=== PATIENT | female | born 1990 | race Hispanic/Latino ===

== ENCOUNTER 2016-07-09 11:29 | Observation (INO) | payer BC ==
[2016-07-09 11:49] VITALS: BMI 25.4
[2016-07-09 11:57] VITALS: RESP 18; TEMP 100.1
[2016-07-09] MEDS ORDERED: Sodium Chloride 0.9% 1,000 ML IV STA (11:58)
--- NOTE | 2016-07-09 12:09 | ED PDOC ---
Arrival/HPI - General Chief Complaint: Syncope Time Seen by Provider: 07/09/16 11:51 Historian: Patient - History of Present Illness Narrative History of Present Illness (Text): 07/09/16 11:50 A 26 year old G0:P0 female who denies any past medical history presents to emergency department after a syncopal episode that took place earlier today. Patient reports she got her menses on 06/14/16, which was heavy for 2 days and then resolved. Patient notes this is not usual for her. She states that 3 days later, she started encountering vaginal bleeding again and since then has been experiencing intermittent heavy vaginal bleeding accompanied by worsening lower abd pressure in the pelvic region. 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 Patient went to her willow machine tender for evaluated who suggested that she comes into the emergency department for further evaluations. Patient denies any head trauma, vomiting, fever, headache, or any other complaints at this time. PMD: Dean MEDICAL DOCTOR NUCLEAR MEDICINE: Antonia Time/Duration: 1-3 hours Symptom Onset: Sudden Symptom Course: Intermittent, Other Quality: Pressure (suprapubic pressure) Activities at Onset: Rest Modifying Factors (Text): abnormalities in menstrual cycle Context: Work (teacher, syncope while at work ) Associated Symptoms (Text): Vaginal bleeding, suprapubic pain, dizziness and nausea Past Medical History - Provider Review Nursing Documentation Reviewed: Yes - Infectious Disease Hx of Infectious Diseases: None - Tetanus Immunization Tetanus Immunization: Unknown - Past Medical History Past Medical History: No Previous - Pulmonary Hx Respiratory Disorders: No - Neurological Hx Neurological Disorder: No - Renal Hx Renal Disorder: No - Endocrine/Metabolic Hx Endocrine Disorders: No - Hematological/Oncological Hx Blood Disorders: No - Integumentary Hx Dermatological Disorder: No - Musculoskeletal/Rheumatological Hx Musculoskeletal Disorders: No - Gastrointestinal Hx Gastrointestinal Disorders: No - Genitourinary/Gynecological Hx Genitourinary Disorders: No - Psychiatric Hx Psychophysiologic Disorder: No Hx Depression: No Hx Emotional Abuse: No Hx Physical Abuse: No Hx Substance Use: No - Past Surgical History Past Surgical History: No Previous - Surgical History Other/Comment: sinus surgery 04/2013 - Anesthesia Hx Anesthesia: Yes Hx Anesthesia Reactions: No Hx Malignant Hyperthermia: No - Suicidal Assessment Feels Threatened In Home Enviroment: No Family/Social History - Physician Review Nursing Documentation Reviewed: Yes Family/Social History: Unknown Family HX Smoking Status: Never Smoked Hx Alcohol Use: No Hx Substance Use: No Hx Substance Use Treatment: No Allergies/Home Meds Allergies/Adverse Reactions: Allergies shellfish derived Allergy (Verified 07/09/16 11:57) ANAPHYLAXIS morphine Adverse Reaction (Verified 07/09/16 11:57) URTICARIA Review of Systems - Physician Review All systems were reviewed & negative as marked: Yes - Review of Systems Constitutional: absent: Fevers, Other (head trauma) Respiratory: absent: SOB Cardiovascular: Syncope. absent: Chest Pain Gastrointestinal: Abdominal Pain, Nausea. absent: Vomiting Genitourinary Female: Vaginal Bleeding Neurological: Dizziness. absent: Headache Physical Exam Vital Signs Reviewed: Yes Vital Signs Temp Pulse Resp BP Pulse Ox 07/09/16 13:28 76 18 106/61 99 07/09/16 11:56 100.1 F H 80 18 103/58 L 98 Temperature: Febrile Blood Pressure: Hypotensive Pulse: Regular Respiratory Rate: Normal Appearance: Positive for: Well-Appearing, Non-Toxic, Comfortable Mental Status: Positive for: Alert and Oriented X 3 - Systems Exam Head: Present: Atraumatic, Normocephalic Pupils: Present: PERRL Conjunctiva: Present: Normal Mouth: Present: Moist Mucous Membranes Pharnyx: Present: Normal. No: ERYTHEMA, EXUDATE Neck: Present: Normal Range of Motion Respiratory/Chest: Present: Clear to Auscultation, Good Air Exchange. No: Respiratory Distress, Accessory Muscle Use Cardiovascular: Present: Regular Rate and Rhythm, Normal S1, S2. No: Murmurs Abdomen: Present: Normal Bowel Sounds. No: Tenderness, Distention, Peritoneal Signs Back: No: CVA Tenderness, Other (no plevic tenderness) Upper Extremity: Present: Normal Inspection. No: Cyanosis, Edema Lower Extremity: Present: Normal Inspection. No: Edema Neurological: Present: GCS=15, CN II-XII Intact, Speech Normal Skin: Present: Warm, Dry, Normal Color. No: Rashes Psychiatric: Present: Alert, Oriented x 3, Normal Insight, Normal Concentration Medical Decision Making ED Course and Treatment: 07/09/16 11:50 Impression: A 26 year old female status post a syncopal episodes, intermittent vaginal bleeding and suprapubic pain. Differential Diagnosis included but are not limited to: vasovagal syncope vs. anemia vs vertigo Plan: -- EKG -- Transvaginal ultrasound -- Labs -- Urinalysis -- Zofran and IV Fluids -- Reassess and disposition Prior Visits: Notes and results from previous visits were reviewed. The patient last presented to the emergency department on 07/13/15 for evaluation after a syncopal episode. - Lab Interpretations I have reviewed the lab results: Yes - EKG Interpretation Interpreted by ED Physician: Yes Type: 12 lead EKG - Medication Orders Current Medication Orders: Discontinued Medications Sodium Chloride (Sodium Chloride 0.9%) 1,000 mls @ 999 mls/hr IV .Q1H1M STA Stop: 07/09/16 12:58 Last Admin: 07/09/16 12:13 Dose: 999 MLS/HR eMAR Start Stop Document 07/09/16 12:13 BUSINESS EDUCATION PROFESSOR (Rec: 07/09/16 12:16 BUSINESS EDUCATION PROFESSOR [facility] [id number] Intravenous Solution Start Date 07/09/16 Start Time 12:16 End Date 07/09/16 End time 13:16 Total Infusion Time 60 Dextrose/Sodium Chloride (Dextrose 5%/0.45% Ns 1000 Ml) 1,000 mls @ 999 mls/hr IV .Q1H1M STA Stop: 07/09/16 17:06 Last Admin: 07/09/16 16:34 Dose: 999 MLS/HR eMAR Start Stop Document 07/09/16 16:34 SRE (Rec: 07/09/16 16:34 SRE [id number]) Intravenous Solution Start Date 07/09/16 Start Time 16:34 End Date 07/09/16 End time 17:35 Total Infusion Time 61 Iohexol (Omnipaque 350 100 Ml) Confirm Administered Dose 350 mg .ROUTE .STK-MED ONE Stop: 07/09/16 14:25 Ketorolac Tromethamine (Toradol) 30 mg IVP STAT STA Stop: 07/09/16 14:17 Last Admin: 07/09/16 14:48 Dose: 30 MG IVP Administration Document 07/09/16 14:48 SRE (Rec: 07/09/16 14:48 SRE [id number]) Charges for Administration # of IVP Administrations 1 Meclizine HCl (Antivert) 12.5 mg PO ONCE STA Stop: 07/09/16 16:06 Last Admin: 07/09/16 16:33 Dose: 12.5 MG Metoclopramide HCl (Reglan) 10 mg IVP STAT STA Stop: 07/09/16 16:05 Last Admin: 07/09/16 16:33 Dose: 10 MG IVP Administration Document 07/09/16 16:33 SRE (Rec: 07/09/16 16:33 SRE [id number]) Charges for Administration # of IVP Administrations 1 Ondansetron HCl (Zofran Inj) 4 mg IVP STAT STA Stop: 07/09/16 11:59 Last Admin: 07/09/16 12:13 Dose: 4 MG IVP Administration Document 07/09/16 12:13 BUSINESS EDUCATION PROFESSOR (Rec: 07/09/16 12:13 BUSINESS EDUCATION PROFESSOR [facility] [id number] Charges for Administration # of IVP Administrations 1 ED OBSERVATION Discharge: Yes Date of observation admission: 07/09/16 Time of observation admission: 11:50 - Observation admission statement Patient is being placed in observation because:: syncope - Goals of Observation Goals of observation are:: discern diagnosis, determine stability, improve symptoms, and determine disposition. - Progress Note Progress Note: EKG: Ordered, reviewed, and independently interpreted the EKG. Rate : 76 BPM Rhythm : NSR Interpretation : Normal axis, Normal interval, No ST/T changes. 07/09/16 13:55 Transvaginal Ultrasound: Creator : Karine Nava MD COMPARISON: None available. FINDINGS: UTERUS: Measures 6.9 x 3.0 x 4.0 cm. Anteverted, normal in size and appearance. No fibroid or other mass lesion seen. ENDOMETRIUM: Measures 3 mm in diameter. Unremarkable. CERVIX: No cervical abnormality identified. RIGHT OVARY: Measures 3.1 x 2.2 x 2.4 cm. No solid mass. Normal flow. LEFT OVARY: Measures 2.5 x 0.9 x 2.3 cm. No solid mass. Normal flow. FREE FLUID: No significant free fluid noted. OTHER FINDINGS: None. IMPRESSION: Unremarkable pelvic ultrasound. 07/09/16 14:14 On reevaluation, patient still complains of some abdominal discomfort. On examination the patient has tenderness with palpation at the left lower quadrant. Urinalysis is unremarkable. Will obtain Abdomen/Pelvis CT. 07/09/16 15:25 Abdomen/Pelvis CT: Creator : Ildefonso Lenz MD COMPARISON: 04/10/2013 FINDINGS: LOWER THORAX: Unremarkable. LIVER: Unremarkable. No gross lesion or ductal dilatation. GALLBLADDER AND BILE DUCTS: Unremarkable. PANCREAS: Unremarkable. No gross lesion or ductal dilatation. SPLEEN: Unremarkable. ADRENALS: Unremarkable. No mass. KIDNEYS AND URETERS: Unremarkable. No hydronephrosis. No solid mass. VASCULATURE: Unremarkable. No aortic aneurysm. BOWEL: There is a moderate amount of constipation. The stomach is also distended with food debris. There is no evidence of small bowel obstruction APPENDIX: Normal appendix. PERITONEUM: Unremarkable. No free fluid. No free air. LYMPH NODES: Unremarkable. No enlarged lymph nodes. BLADDER: Unremarkable. REPRODUCTIVE: Unremarkable. BONES: No acute fracture. OTHER FINDINGS: None. IMPRESSION: Moderate constipation. No acute intra-abdominal findings 07/09/16 16:02 Patient just vomited twice and says she is dizzy - now saying the dizziness has a spinning sensation - will give her reglan and meclizine and additional IVF. From a vaginal bleeding standpoint, H/H are normal with unremarkable pelvic sono ; spoke with Dr. Knight, who will follow her up outpatient for that. 07/09/16 17:21 Patient reports feeling better with much improvement in symptoms. Will d/c her on meclizine and zofran and have her f/u Dr. Knight for the bleeding. - Scribe Statement The provider has reviewed the documentation as recorded by the Scribe Denise Buchanan, training with Jona Baxter Provider Scribe Attestation: All medical record entries made by the Scribe were at my direction and personally dictated by me. I have reviewed the chart and agree that the record accurately reflects my personal performance of the history, physical exam, medical decision making, and the department course for this patient. I have also personally directed, reviewed, and agree with the discharge instructions and disposition. Disposition/Present on Arrival - Present on Arrival Any Indicators Present on Arrival: No History of DVT/PE: No History of Uncontrolled Diabetes: No Urinary Catheter: No History of Decub. Ulcer: No History Surgical Site Infection Following: None - Disposition Have Diagnosis and Disposition been Completed?: Yes Diagnosis: Abdominal pain, Nausea & vomiting, Dizziness Disposition: HOME/ ROUTINE Disposition Time: 17:25 Patient Plan: Discharge Patient Problems: Current Active Problems Problem Status Diagnosed Abdominal pain Acute Dizziness Acute Nausea & vomiting Acute Condition: GOOD
[2016-07-09 12:20] LABS: ADD MANUAL DIFF? NO
[2016-07-09 12:22] LABS: BASO # 0.04 K/mm3 (0.0-2.0); BASO % 0.8 % (0.0-3.0); EOS # 0.1 (0.0-0.7); EOS % 1.2 % (1.5-5.0); GRAN # 2.88 (1.4-6.5); GRAN % 57.1 % (50.0-68.0); HEMATOCRIT 38.8 % (36.0-48.0); LYMPH # 1.5 (1.2-3.4); LYMPH % 30.4 % (22.0-35.0); MEAN CELL VOLUME 83.4 fL (80.0-105.0); MEAN CORPUSCULAR HEMOGLOBIN 28.8 pg (25.0-35.0); MEAN CORPUSCULAR HGB CONC 34.5 g/dl (31.0-37.0); MEAN PLATELET VOLUME 9.3 fl (7.0-11.0); MONO # 0.5 (0.1-0.6); MONO % 10.5 % (1.0-6.0); PLATELET COUNT 199 10^3/uL (120.0-450.0)
[2016-07-09 12:36] LABS: ALB/GLOB RATIO 1.1 (1.1-1.8); ALKALINE PHOSPHATASE 48 U/L (38-133); ALT/SGPT 27 U/L (7-56); AST/SGOT 38 U/L (15-39); BILIRUBIN,TOTAL 0.7 mg/dL (0.2-1.3); BLOOD UREA NITROGEN 12 mg/dL (7-21); CALCIUM 9.3 mg/dL (8.4-10.5); CARBON DIOXIDE 25 mmol/L (21-33); CHLORIDE 102 mmol/L (98-107); GFR AFRICAN-AMERICAN > 60; GLUCOSE,RANDOM 82 mg/dL (70-110); LIPASE 50 U/L (23-300); POTASSIUM 4.1 mmol/L (3.6-5.0); SODIUM 137 mmol/L (132-148); TOTAL PROTEIN 8.2 g/dL (5.8-8.3)
[2016-07-09 12:38] LABS: INR 1.03 (0.93-1.08); PARTIAL THROMBOPLASTIN TIME 27.8 Seconds (23.7-30.8)
[2016-07-09 13:13] LABS: URINE BILIRUBIN NEGATIVE (NEGATIVE); URINE BLOOD MODERATE (NEGATIVE); URINE GLUCOSE (UA) NEGATIVE (NEGATIVE); URINE KETONE 15 mg/dL (NEGATIVE); URINE LEUKOCYTE ESTERASE NEGATIVE Leu/uL (NEGATIVE); URINE PROTEIN NEGATIVE mg/dL (<30 mg/dL); URINE UROBILINOGEN 0.2 E.U./dL (<1 E.U./dL)
[2016-07-09 13:21] LABS: URINE APPEARANCE SL CLOUDY (CLEAR); URINE COLOR YELLOW (YELLOW)
[2016-07-09 13:25] LABS: URINE BACTERIA TRACE (NEG); URINE WBC NEGATIVE /hpf (0-6)
--- NOTE | 2016-07-09 14:00 | US ---
HISTORY: lower abd pressure, vaginal bleeding COMPARISON: None available. TECHNIQUE: Transvaginal pelvic ultrasound was performed. FINDINGS: UTERUS: Measures 6.9 x 3.0 x 4.0 cm. Anteverted, normal in size and appearance. No fibroid or other mass lesion seen. ENDOMETRIUM: Measures 3 mm in diameter. Unremarkable. CERVIX: No cervical abnormality identified. RIGHT OVARY: Measures 3.1 x 2.2 x 2.4 cm. No solid mass. Normal flow. LEFT OVARY: Measures 2.5 x 0.9 x 2.3 cm. No solid mass. Normal flow. FREE FLUID: No significant free fluid noted. OTHER FINDINGS: None. IMPRESSION: Unremarkable pelvic ultrasound.
[2016-07-09] MEDS ORDERED: Iohexol 350 MG/100 ML VIAL ONE (14:24)
--- NOTE | 2016-07-09 15:21 | CT ---
PROCEDURE: CT Abdomen and Pelvis with contrast HISTORY: LLQ abd pain COMPARISON: 04/10/2013 TECHNIQUE: Contrast dose: 100 cc of Omni 350 Radiation dose: Total exam DLP = 398 mGy-cm. FINDINGS: LOWER THORAX: Unremarkable. LIVER: Unremarkable. No gross lesion or ductal dilatation. GALLBLADDER AND BILE DUCTS: Unremarkable. PANCREAS: Unremarkable. No gross lesion or ductal dilatation. SPLEEN: Unremarkable. ADRENALS: Unremarkable. No mass. KIDNEYS AND URETERS: Unremarkable. No hydronephrosis. No solid mass. VASCULATURE: Unremarkable. No aortic aneurysm. BOWEL: There is a moderate amount of constipation. The stomach is also distended with food debris. There is no evidence of small bowel obstruction APPENDIX: Normal appendix. PERITONEUM: Unremarkable. No free fluid. No free air. LYMPH NODES: Unremarkable. No enlarged lymph nodes. BLADDER: Unremarkable. REPRODUCTIVE: Unremarkable. BONES: No acute fracture. OTHER FINDINGS: None. IMPRESSION: Moderate constipation. No acute intra-abdominal findings
[2016-07-09] MEDS ORDERED: Dextrose 5%/0.45% NS 1,000 ML IV STA (16:06)
[2016-07-09 17:41] VITALS: BP 110/69; PULSE 72; O2SAT 98
--- NOTE | 2016-07-10 09:39 | CARD ---
APPROVED REPORT EKG Measurement Heart [id number] CT 138P55 [id number] <Conclusion> Normal sinus rhythm Normal ECG
== END 2016-07-09 17:26 | disposition home or self-care (01) ==
LOC: ED 11:29 → EROBSV 11:50
PROVIDERS: ADMIT Emergency Medicine; ATTEND Emergency Medicine
DX: R10.9 Unspecified abdominal pain (principal); R11.2 Nausea with vomiting, unspecified; R42 Dizziness and giddiness
CPT/HCPCS: 74177; 76830; 80053; 81001; 83690; 84703; 85025; 85610; 85730; 86850; 86900; 93005; 96361; 96374; 96375; 99285; G0378; J1885; J2405; J2765; J7040; J7042; Q9967